=== PATIENT | female | born 1980 | race Two or more races ===

== ENCOUNTER 2022-06-14 11:56 | Emergency (ER) | payer BC, OTHER ==
[~2022-06-14] VITALS: Ht 170.2 cm; Wt 122.6 kg
[2022-06-14 13:09] VITALS: BP 117/75
[2022-06-14] MEDS ORDERED: HYDR-4902 PO (15:40)
== END 2022-06-14 15:59 | disposition home or self-care (01) ==
LOC: ER 11:56 → EEVIPCON 11:56 → ER 15:58
DX: S80.02XA Contusion of left knee, initial encounter (principal); W18.39XA Other fall on same level, initial encounter; Y93.89 Activity, other specified; Y92.89 Other specified places as the place of occurrence of the external cause; Y99.8 Other external cause status